=== PATIENT | male | born 1990 | race Caucasian/White ===

== ENCOUNTER 2024-12-30 05:40 | Day surgery (SDC) | payer SELFPAY, OTHER ==
[2024-12-30] VITALS (12 sets, daily range): BP systolic 97–135; BP diastolic 60–99; PULSE 64–77; RESP 16–20; TEMP 36.3–36.6; O2SAT 92–99; BMI 25.4
[2024-12-30] MEDS: 0.9% Normal Saline (1000mL) 1,000 ML 15 ML IV (06:31)
--- NOTE | 2024-12-30 06:42 | PCM.PRE.AN2 ---
ASA Classification* ASA Classification ASA Classification: 2 Assessment & Plan Anesthesia* Anesthesia Assessment Anesthesia Assessment: Discussed sedation and/or anesthesia options, risks, benefits, and alternatives with patient/parents/legal guardian/POA. Questions invited. The patient/parents/legal guardian/POA seems to understand and agrees to proceed with anesthesia plan. Reviewed the physical assessment, medical history, allergy history and patient home medications list prior to surgery/procedure/anesthetic and documented any changes. Performed airway and anesthesia risk assessments. 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 When Was Last Pacemaker Check QUESTION #4 FULL TEXT: You/Your Family Experience fever (hyperthermia) with Anesthesia Last Oral Intake Last Oral intake: Last Oral Intake NPO since 22:00 12/30/24 06:18 Meds taken in AM with sips of No 12/30/24 06:18 water? Meds patient instructed to take am of surgery PONV PONV - outside residential sales professional: PONV - outside residential sales professional Female No 12/18/24 08:26 HX of Motion Sickness No 12/18/24 08:26 HX of N/V After Surgery No 12/18/24 08:26 Non-Smoker No 12/18/24 08:26 Duration of Surgery greater Yes 12/18/24 08:26 than 60 minutes Number of Risk Factors 1 12/18/24 08:26 PONV Score Low Risk 12/18/24 08:26 Height & Weight Height & Weight: Anesthesia: Height & Weight Height 6 ft 12/30/24 06:18 Weight: 85 kg 12/30/24 06:18 Body Mass Index (BMI) 25.4 12/30/24 06:18 Respiratory Assessment Respiratory Assessment - outside residential sales professional: Respiratory Tract Infection Hx - outside residential sales professional Hx Respiratory Tract Infection Yes: COLD-NO FEVER OR CHEST 12/18/24 08:26 CONGESTION STOP Sleep Apnea STOP Sleep Apnea - outside residential sales professional: STOP Sleep Apnea - outside residential sales professional Hx Hypertension No 12/18/24 08:26 Hx Sleep Apnea No 12/18/24 08:26 CPAP BIPAP Do you snore loudly (louder No 12/18/24 08:26 than talking or can be heard Do you often feel tired/ No 12/18/24 08:26 fatigued/ sleepy during daytime? Has anyone observed you stop No 12/18/24 08:26 breathing during sleep? STOP Results Negative 12/18/24 08:26 QUESTION #5 FULL TEXT : Do you snore loudly (louder than talking or can be heard through closed doors)? 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 Specify any problems Hx of Preganancy in last 3 N/A 12/18/24 08:26 Months Nurse Filling Out Transfusion VCHRISTIN 12/18/24 08:26 & Questions: Date: 12/18/24 12/18/24 08:26 Time: 08:27 12/18/24 08:26 Patient unable to answer at this time (ie. confused, unrespo /Reproduction History /Reproductive History - outside residential sales professional: /Reproductive Hx- outside residential sales professional Hx Now Gestational Age (in weeks): EDC: Hx Hx Para Hx Section SAB Active Medications Active Medications: Current Medications Generic Name Dose Route Start Last Admin Trade Name Freq PRN Reason Stop Dose Admin Cefazolin Sodium 2 gm/ N/A 20 mls @ 400 mls/hr 12/30/24 07:30 IV 12/30/24 07:32 PREOP ONE Sodium Chloride 1,000 mls @ 15 mls/hr 12/30/24 06:05 12/30/24 06:31 IV 01/04/25 19:24 15 mls/hr .Q48H SHAUNNA Administration Protocol [facility] Medical History Smoker Left inguinal hernia Right inguinal hernia Home Medications ?Medication ?Instructions ?Recorded ?Last Taken ?Type NK 12/03/24 Unknown History Allergy/AdvReac Type Severity Reaction Status Date / Time No Known Allergies Allergy Verified 12/30/24 06:17 Social History Smoking Status: Current every day smoker tobacco type: cigarettes alcohol intake: never substance use type: does not use Review of Systems (Anesthesia) ROS Narrative System reviewed and no additional complaints, except as documented.
--- NOTE | 2024-12-30 07:18 | PCM.HP.STD ---
HPI - General General Date of Admission: 12/30/24 Date of Service: 12/30/24 Chief Complaint: Left inguinal hernia HPI Narrative ELVIRA AGUSTIN, is a 34 M who presents for elective repair of left inguinal hernia (poss bilateral) [facility] Medical History Smoker Left inguinal hernia Right inguinal hernia Home Medications ?Medication ?Instructions ?Recorded ?Last Taken ?Type NK 12/03/24 Unknown History Allergy/AdvReac Type Severity Reaction Status Date / Time No Known Allergies Allergy Verified 12/30/24 06:17 Social History Smoking Status: Current every day smoker tobacco type: cigarettes alcohol intake: never substance use type: does not use ROS Constitutional Constitutional: Reports systems reviewed and no addt'l complaints, except as documented Eyes Eyes: Reports systems reviewed and no addt'l complaints, except as documented ENT HEENT: Reports systems reviewed and no addt'l complaints, except as documented Cardiovascular Cardiovascular: Reports systems reviewed and no addt'l complaints, except as documented Respiratory/Chest Respiratory/Chest: Reports systems reviewed and no addt'l complaints, except as documented Gastrointestinal Gastrointestinal: Reports systems reviewed and no addt'l complaints, except as documented Genitourinary Genitourinary: Reports systems reviewed and no addt'l complaints, except as documented Musculoskeletal Musculoskeletal: Reports systems reviewed and no addt'l complaints, except as documented Vital Signs Vital Signs Vital Signs: 12/30/24 06:18 12/30/24 06:18 12/30/24 06:43 Temperature 97.4 F L 97.4 F L Temperature Source Temporal Pulse Rate 64 64 Respiratory Rate 16 16 Respiratory Pattern Normal Blood Pressure 135/99 H 135/99 H Blood Pressure Mean 111 Blood Pressure Source Monitor Blood Pressure Position Semi-Fowlers Blood Pressure Location Right Arm Pulse Ox 99 99 Oxygen Delivery Method Room Air Weight Weight: 187 lb 6.287 oz Body Mass Index (BMI) 25.4 Physical Exam Const alert, oriented x3 and no apparent distress Assessment & Plan Assessment/Plan (1) Left inguinal hernia: PLAN: Plan robotic left inguinal hernia repair - poss bilateral
[2024-12-30] MEDS: Cefazolin 2 GM in Syringe IV (07:45)
[2024-12-30] MEDS: Bupiv/Epi 0.25% 30 ML Vial (08:14)
[2024-12-30] MEDS: Gentamicin 80 MG/2 ML Vial (08:14)
--- NOTE | 2024-12-30 09:32 | DCINST_ITS ---
Discharge Instructions Diet Discharge Diet: Light diet - advance as tolerated Activity Discharge Activity: Return to Normal Activity May shower in (days): 1 Ice area for (Minutes): 30 Lifting Restrictions: No lifting pushing or pulling more than 20 pounds for 6 weeks Dressing / Incision Call your doctor if your incision/area has: Continuous Slow Oozing, Sudden Increased Bleeding, Increased Pain/ Swelling, Increased Redness, Foul Smelling Discharge and Swelling at the incision site Call your doctor if you observe: Fever of 101 or Higher Cleanse incision/area with: Soap & Water Follow Up Care Please Follow Up With: Rik Caban MD When: 2 weeks Test Results: Test results from this visit will be discussed in further detail at your follow- up appointment, if applicable. Discharge Plan Admission Primary Reason for Your Visit: Left inguinal hernia repair Attending Provider: Rik Caban Primary Care Provider: Dipak Vick Instructions Print Language: Amharic Discharge Orders/Prescriptions Prescriptions: New oxycodone-acetaminophen [Percocet] 5-325 mg tablet 1 tab PO Q8H PRN (Reason: pain) 4 Days Qty: 10 0RF Referrals / Follow Up: Dipak Vick DO [Primary Care Provider] - Disposition Disposition (needs filled in before D/C Order can be placed): Home, Self Care
--- NOTE | 2024-12-30 09:36 | PCM.POST.ANE ---
Anesthesia: Postop Eval I Current Vital Signs Temperature: 97.4 F Pulse Rate: 77 Blood Pressure: 108/64 Respiratory Rate: 20 Pulse Ox: 96 Oxygen Delivery Method: Non-Rebreather Oxygen Flow Rate (L/min): 6 Assessment Airway patent: Yes Spontaneous unlabored respirations: Yes Mental status: Asleep nausea: No Vomiting: No Anesthesia Complication: No Fluid Hydration Crystalloid volume administer (ml): 1,100 Total IV fluid infused: 1,100 Progress Note Anesthesia document: Postop Eval 1 completed: Yes
--- NOTE | 2024-12-30 09:37 | OP.PCM_ITS ---
Problems Associated Problem List Diagnoses (1) Left inguinal hernia: Procedures Digestive [id number]-49xxx: 90505 Lap ing hernia repair init Operative Report (Standard) Operative Information Date of Procedure: 12/30/24 Pre-Operative Diagnosis: Left inguinal hernia Post-Operative Diagnosis: Left inguinal hernia Surgery/Procedure Performed: Robotic left inguinal hernia repair with mesh chief transfer and pumphouse operator: Yes Recruiter Coordinator: Cris Bowman Tasks completed by sourcing assistant: Closing and Trocar Additional behavioral assistant?: No Type of Anesthesia: General and Local RN Documented Start/Stop Times: Operation Date: 12/30/24 07:30 Case Time Into Pre-Op 12/30/24 06:00 Out of Pre-Op 12/30/24 07:31 Anesthesia Start 12/30/24 07:35 Into Room 12/30/24 07:35 Procedure Start 12/30/24 08:00 Procedure End 12/30/24 09:22 Anesthesia End 12/30/24 09:32 Out of Room 12/30/24 09:32 Procedure Start Time: 08:00 Procedure Stop Time: 09:22 Select all DRAINS/GRAFTS/IMPLANTS that apply: Prosthetic device Prosthetic device details: 10 x 15 cm ProGrip mesh and Implanted device Implanted device details: 10 x 15 cm ProGrip mesh Special Medications: IV Ancef preop Estimated Blood Loss: 5 mL Specimen collected: No Description of surgery: The patient is a 34-year-old male recently seen through the office with a left inguinal hernia. There was question of a right inguinal hernia at the time of a walk-in clinic visit however I did not appreciate 1 on examination in the office. I offered him a robotic left inguinal hernia repair with mesh with the possibility of a bilateral inguinal hernia repair if 1 was encountered on the right. We discussed the details of the planned procedure and he wished to proceed. He is brought to the operating room today following informed consent. Antibiotics were given and a timeout was performed. He was placed supine on the operative table with arms outstretched on arm boards. A general anesthesia was induced. His arms were then comfortably tucked at his side. His abdomen is then prepped and draped in the usual sterile manner. An 8 mm incision was made just above the umbilicus which a 5 mm trocar was placed optically. This was placed without incident. Once in place the abdomen is then fully insufflated with CO2 gas. A 5 mm 0 degree scope was inserted there were no signs of bowel or vascular injury. Next an 8 mm trocar was placed on the right side of the abdomen as well as another 8 mm trocar in the left side of the abdomen. Both of these were placed under direct visualization and without difficulty. The umbilical trocar was then switched to an 8 mm trocar for the robot. The da Hamida robot was then docked to the ports. The pelvis was visualized and no evidence of hernia was encountered on the right. There is clearly a hernia on the left. The peritoneum overlying the left-sided hernia was then incised in a medial to lateral direction using curved scissors. A set peritoneal plane was then developed. The hernia sac was then carefully dissected downward. At the same time the cord structures were peeled away from the hernia sac. This was a very chronic appearing hernia. It was somewhat challenging to get the cord structures off of the sac. Eventually the hernia sac was fully reduced. Trell's ligament was dissected out medially. A sufficient shelf was created in the inferior aspect of the dissection plane large enough to accommodate the mesh. The mesh selected was a 10 x 15 ProGrip mesh. This was placed in antibiotic solution. It was inserted into the abdomen and then laid into place. This covered over the dissection field nicely. The peritoneum was then closed in a running manner using V-Loc suture. This closed the peritoneum nicely. The abdomen was then inspected. There were no signs of bowel or vascular injury. The trocars were opened up and eventually removed. Insufflation was allowed to escape. Additional local anesthetic was injected into the incisions. Incisions were then closed with 4-0 Vicryl. Skin glue was applied as dressing. He was awakened anesthesia and taken to recovery in good position. A MELANI was utilized as a assistant professor of criminal justice. Her role included assistance with skin closure as well as instrument changes and assistance with docking of the robot Surgical Findings: Large left inguinal hernia. No evidence of right inguinal hernia Complications Complications: No Admit VTE Documentation VTE Present on Admission: No VTE Mechan Device Prophylaxis: SCD's VTE Pharm Prophylaxis ordered?: No Reason prophylaxis not ordered: Treatment Not Indicated
--- NOTE | 2024-12-30 10:07 | POSTOPAN2_ITS ---
Anesthesia Postop Eval I Sum Postop Eval Completion status Anesthesia document: Postop Eval 1 completed: Yes Anesthesia Postop Eval I Summary Anesthesia Postop Eval I Summary: Anesthesia Postop Eval I: Assessment Summary Airway patent Yes 12/30/24 09:37 OCCUPATIONAL [email or web address] Spontaneous unlabored Yes 12/30/24 09:37 OCCUPATIONAL [email or web address] respirations Mental status Asleep 12/30/24 09:37 OCCUPATIONAL [email or web address] nausea No 12/30/24 09:37 OCCUPATIONAL [email or web address] Vomiting No 12/30/24 09:37 OCCUPATIONAL [email or web address] Anesthesia Postop Eval I: Fluid Summary Crystalloid volume administer 1,100 12/30/24 09:37 OCCUPATIONAL [email or web address] (ml) Colloids volume administered ( ml) Blood Product volume administered (ml) Total IV fluid infused 1,100 12/30/24 09:37 OCCUPATIONAL [email or web address] Anesthesia Postop Eval I: Summary Notes Anesthesia Complication No 12/30/24 09:37 OCCUPATIONAL [email or web address] Anesthesia Complication Comment: Post-operative progress note Anesthesia: Postop Eval II Evaluation Mental status: Awake Pain Level: 0 nausea: No Vomiting: No
--- NOTE | 2024-12-30 10:07 | PCM.POSTANE2 ---
Anesthesia Postop Eval I Sum Postop Eval Completion status Anesthesia document: Postop Eval 1 completed: Yes Anesthesia Postop Eval I Summary Anesthesia Postop Eval I Summary: Anesthesia Postop Eval I: Assessment Summary Airway patent Yes 12/30/24 09:37 [email or web address] Spontaneous unlabored Yes 12/30/24 09:37 DOOR [email or web address] respirations Mental status Asleep 12/30/24 09:37 [email or web address] nausea No 12/30/24 09:37 DOOR [email or web address] Vomiting No 12/30/24 09:37 [email or web address] Anesthesia Postop Eval I: Fluid Summary Crystalloid volume administer 1,100 12/30/24 09:37 [email or web address] (ml) Colloids volume administered ( ml) Blood Product volume administered (ml) Total IV fluid infused 1,100 12/30/24 09:37 [email or web address] Anesthesia Postop Eval I: Summary Notes Anesthesia Complication No 12/30/24 09:37 [email or web address] Anesthesia Complication Comment: Post-operative progress note Anesthesia: Postop Eval II Evaluation Mental status: Awake Pain Level: 0 nausea: No Vomiting: No
== END 2024-12-30 11:59 | disposition home or self-care (01) ==
LOC: SDC 05:41 → AC 05:42
PROVIDERS: PCP Family Medicine; Referring Provider Surgery; Visit Provider Surgery
PROC: 0YQ64ZZ Repair Left Inguinal Region, Percutaneous Endoscopic Approach (ICD-10-PCS; CPT 49650; principal; 2024-12-30 07:10)
DX: K40.90 Unilateral inguinal hernia, without obstruction or gangrene, not specified as recurrent (principal); F17.210 Nicotine dependence, cigarettes, uncomplicated
CPT/HCPCS: 49650; S2900; 00750; J2405